=== PATIENT | male | born 1975 | race African-American/Black ===

== ENCOUNTER 2021-06-29 06:29 | Day surgery (SDC) | payer BC ==
[2021-06-20 10:10] VITALS: BMI 27.3
[2021-06-29] MEDS ORDERED: LIDOCAINE HCL 1%, 10 MG/ML (20ML VIAL) ONE (07:18)
[2021-06-29] MEDS ORDERED: BUPIVACAINE HCL/PF 2.5 MG/ML - 30 ML VIAL IJ ONE (07:18)
[2021-06-29] MEDS ORDERED: MIDAZOLAM HCL 2 MG/2 ML SINGLE DOSE VIAL ONE (07:45)
[2021-06-29] MEDS ORDERED: SUCCINYLCHOLINE CHLORIDE 200 MG/10 ML SYRINGE ONE (07:45)
[2021-06-29] MEDS ORDERED: PROPOFOL 20 ML ONE ×2 (07:45)
[2021-06-29] MEDS ORDERED: ceFAZolin SODIUM 1 GM VIAL ONE (08:12)
[2021-06-29] MEDS ORDERED: ONDANSETRON 4 MG/2 ML VIAL ONE (08:12)
[2021-06-29] MEDS ORDERED: DEXAMETHASONE SOD PHOSPHATE 4 MG/1 ML VIAL ONE (08:12)
[2021-06-29] MEDS ORDERED: oxyCODONE HCL 5 MG TABLET PO PRN (10:33)
[2021-06-29] MEDS ORDERED: ONDANSETRON 4 MG/2 ML VIAL IVPUSH PRN (10:33)
[2021-06-29] MEDS ORDERED: LACTATED RINGERS SOLUTION 1,000 ML IV SCH (10:45)
[2021-06-29 11:36] VITALS: TEMP 98.1
[2021-06-29 11:44] VITALS: BP 125/81; PULSE 72
== END 2021-06-29 11:10 | disposition home or self-care (01) ==
LOC: FASU 06:29
PROVIDERS: ATTEND Orthopaedic Surgery
PROC: 0LN70ZZ Release Right Hand Tendon, Open Approach (ICD-10-PCS; principal; 2021-06-29 08:26)
DX: M65.341 Trigger finger, right ring finger (principal)
CPT/HCPCS: 88304-TC; 94760